=== PATIENT | male | born 1940 | race Caucasian/White ===

== ENCOUNTER 2023-03-01 05:34 | Outpatient (CLI) | payer MEDICARE ==
[~2023-03-01] VITALS: Ht 175.3 cm; Wt 86.4 kg
[2023-03-01] MEDS ORDERED: TMSL.4C PO (10:29)
[2023-03-01] MEDS ORDERED: ATOR10TA66 PO (10:29)
[2023-03-01] MEDS ORDERED: CANA1TAB4 PO (10:29)
[2023-03-01] MEDS ORDERED: DONE10TA41 PO (10:29)
[2023-03-01] MEDS ORDERED: CANA300T PO (10:29)
[2023-03-01] MEDS ORDERED: ASPI-999 PO (10:29)
== END 2023-03-01 10:40 | disposition home or self-care (01) ==
LOC: PREOP 05:34
PROVIDERS: ATTEND Specialist
DX: Z01.818 Encounter for other preprocedural examination (principal)

== ENCOUNTER 2023-03-04 08:28 | Day surgery (SDC) | payer BC, MEDICARE ==
[~2023-03-04] VITALS: Ht 175.3 cm; Wt 86.4 kg
[~2023-03-04 08:28] MED LIST: ASPI-999 PO; ATOR10TA66 PO; CANA1TAB4 PO; CANA300T PO; DONE10TA41 PO; TMSL.4C PO
[2023-03-04] MEDS ORDERED: MOXIFLOXACIN OPHTH SOLN 5 MG/ML 0.3 ML SYRINGE OP ONE (08:45)
[2023-03-04] MEDS ORDERED: TIMOLOL 0.5% (CATARACTS) 0.3 ML BTL OU PRN (08:45)
[2023-03-04] MEDS ORDERED: POVIDONE IODINE OPHTH SOLN 5% 30 ML OP ONE (08:45)
[2023-03-04] MEDS ORDERED: LIDOCAINE PF 1% 2 ML VIAL IR PRN (08:45)
[2023-03-04] MEDS: TETRACAINE 0.5% OPHTH SOLN 4 ML BTL (SINGLE DOSE ONLY) OU PRN ×4 (09:05→09:27)
--- NOTE | 2023-03-04 09:11 | Ophthalmologist Pre-Op Note ---
Pre-Operative Progress Note H&P Reviewed The H&P was reviewed, patient examined and no changes noted. Date H&P Reviewed: Mar 04, 2023 Time H&P Reviewed: 09:11 Pre-Op Dx Cataract, Right Eye TANNER FARFAN MD Mar 04, 2023 09:11
[2023-03-04] MEDS: PHENYLEPHRINE 10% OPHTH SOLN 5 ML BTL OU SCH ×3 (09:17→09:27)
[2023-03-04] MEDS: TROPICAMIDE 1% OPH SOLN (MYDRIACYL) 15 ML BTL OP SCH ×3 (09:18→09:28)
[2023-03-04 09:20] VITALS: BP 139/84
[2023-03-04] MEDS ORDERED: MIDAZOLAM INJ 2 MG/2 ML VIAL ONE (09:20)
--- NOTE | 2023-03-04 10:01 | Ophthalmology Operative Report ---
Cataract, Miotic Pupil PREOPERATIVE DIAGNOSIS: 1. Cataract Right Eye 2. Miotic Pupil POSTOPERATIVE DIAGNOSIS: 1. Cataract Right Eye 2. Miotic Pupil PROCEDURE: 1. Cataract removal and placement of posterior chamber implant, right eye 2. Pupillary expansion with malyugin ring SURGEON: Chemo Farfan ANESTHESIA: Topical with sedation COMPLICATIONS: None ESTIMATED BLOOD LOSS: Minimal DESCRIPTION OF PROCEDURE: After proper informed consent was obtained, the patient, a 83 male, was taken to the Operating Room and the right eye was anesthetized with Tetracaine. The eye was then prepped and draped in the usual manner. A wire lid speculum was placed. A paracentesis was made at the left hand position. Preservative free lidocaine was injected into anterior chamber followed by viscoelastic. A clear corneal incision was made in the temporal position. The malyugin ring was injected into the anterior chamber and the pupil was dilated. A capsulorrhexis was preformed and the central nuclear and cortical material were removed. The posterior capsule was polished and Bravo [id number] 21.5 IOL was placed into the capsular bag. The malyugin ring was removed. The residual viscoelastic was aspirated and the balanced saline solution was injected into the anterior chamber. Moxifloxacin was injected into the anterior chamber. The wound was checked and found to be water tight. The patient tolerated the procedure well without complications. CHEMO FARFAN MD Mar 04, 2023 10:01
[2023-03-04 10:10] VITALS: BP 135/76
--- NOTE | 2023-03-04 12:55 | Anesthesia-General Post-Op ---
MAC Patient Condition Mental Status/LOC: Same as Preop Cardiovascular: Satisfactory Nausea/Vomiting: Absent Respiratory: Satisfactory Pain: Controlled Complications: Absent Post Op Complications Complications None Follow Up Care/Instructions Patient Instructions None needed. Anesthesiology Discharge Order Discharge Order Patient is doing well, no complaints, stable vital signs, no apparent adverse anesthesia problems. No complications reported per nursing. ANDERSON CORBETT CRNA Mar 04, 2023 12:55
== END 2023-03-04 10:14 | disposition home or self-care (01) ==
LOC: SDC 08:28
PROVIDERS: ATTEND Specialist
DX: H25.9 Unspecified age-related cataract (principal); Z87.891 Personal history of nicotine dependence
CPT/HCPCS: 66982; 82947; V2632

== ENCOUNTER 2023-03-08 09:41 | Outpatient (CLI) | payer MEDICARE | END 2023-03-08 14:13 | disposition home or self-care (01) | LOC: PREOP 09:41 | PROVIDERS: ATTEND Specialist | DX: Z01.818 Encounter for other preprocedural examination (principal) ==